=== PATIENT | female | born 1970 | race Caucasian/White ===

== ENCOUNTER 2017-03-06 22:51 | Emergency (ER) | payer SELFPAY ==
[2017-03-06 22:51] VITALS: BMI 38.2
[2017-03-06 23:00] VITALS: BP 130/59; PULSE 84; RESP 18; TEMP 98.8; O2SAT 99
--- NOTE | 2017-03-06 23:26 | ED PDOC ---
HPI: CCC, URI, Sore Throat Time Seen by Provider: 03/06/17 23:01 Chief Complaint (Nursing): ENT Problem Chief Complaint (Provider): Right ear pain 2 day History Per: Patient History/Exam Limitations: no limitations Onset/Duration Of Symptoms: Days Current Symptoms Are (Timing): Still Present Location Of Pain: Ear(s) Associated Symptoms: denies: Fever, Chills, Sore Throat, Cough, Sputum, Neck Pain, Sinus Drainage, Myalgias, Nasal Congestion, Nausea, Vomiting, Diarrhea Past Medical History Reviewed: Historical Data, Nursing Documentation, Vital Signs Vital Signs: Last Vital Signs Temp 98.8 F 03/06/17 22:57 Pulse 84 03/06/17 22:57 Resp 18 03/06/17 22:57 BP 130/59 L 03/06/17 22:57 Pulse Ox 99 03/06/17 23:26 - Medical History PMH: No Chronic Diseases Denies: Chronic Kidney Disease - Surgical History Surgical History: (x 1) - Family History Family History: States: Unknown Family Hx - Living Arrangements Living Arrangements: With Family - Social History Current smoker - smoking cessation education provided: No Alcohol: None Drugs: Denies - Home Medications Home Medications: Ambulatory Orders Medication Instructions Recorded Docusate [Colace] 100 mg PO BID PRN #14 cap 11/28/14 oxyCODONE/Acetaminophen [Percocet 1 tab PO Q6H PRN #20 tab 11/28/14 5/325 mg Tab] Nabumetone [Relafen] 500 mg PO BID #20 tab 01/23/15 oxyCODONE/Acetaminophen [Percocet 1 ea PO Q6H PRN #15 tab 01/23/15 5/325 mg Tab] Methocarbamol [Robaxin] 500 mg PO TID #14 tab 05/03/15 Nabumetone [Relafen] 500 mg PO BID #10 tab 05/03/15 Tramadol Hydrochloride [Tramadol] 50 mg PO BID #7 tab 05/03/15 Metoclopramide Hydrochloride 10 mg PO TID #30 tab 05/10/15 [Reglan] Naproxen [Naprosyn] 500 mg PO BID PRN #30 tab 05/10/15 Amoxicillin/Clavulanate [Augmentin 1 tab PO BID #14 tab 07/20/15 875 MG-125 MG] Ibuprofen [Motrin] 600 mg PO Q6 PRN #15 tab 07/20/15 Ciprofloxacin/Ciprofloxa HCl 500 mg PO BID #14 tab 10/19/15 [Ciprofloxacin] Phenazopyridine HCl [Pyridium] 200 mg PO TID PRN #10 tablet 10/19/15 Ciprofloxacin/Dexamethasone 4 drop .ROUTE BID #1 bottle 03/06/17 [Ciprodex 0.3%-0.1% 7.5 Ml] - Allergies Allergies/Adverse Reactions: Allergies Allergy/AdvReac Type Severity Reaction Status Date / Time No Known Allergies Allergy Verified 05/10/15 16:35 Review of Systems ROS Statement: Except As Marked, All Systems Reviewed And Found Negative Constitutional: Negative for: Fever, Chills ENT: Positive for: Ear Pain Physical Exam - Reviewed Nursing Documentation Reviewed: Yes Vital Signs Reviewed: Yes - Physical Exam Appears: Positive for: Well, Non-toxic, No Acute Distress Head Exam: Positive for: ATRAUMATIC, NORMAL INSPECTION, NORMOCEPHALIC Skin: Positive for: Normal Color, Warm, DRY Eye Exam: Positive for: Normal appearance ENT: Positive for: Other ((+) erythema and edema of the external auditory canal ). Negative for: Normal ENT Inspection Neck: Positive for: Normal, Painless ROM Cardiovascular/Chest: Positive for: Regular Rate, Rhythm Respiratory: Positive for: Normal Breath Sounds. Negative for: Accessory Muscle Use, Respiratory Distress Gastrointestinal/Abdominal: Positive for: Normal Exam, Bowel Sounds, Soft Back: Positive for: Normal Inspection Extremity: Positive for: Normal ROM Neurologic/Psych: Positive for: Alert, Oriented - ECG O2 Sat by Pulse Oximetry: 99 Disposition - Clinical Impression Clinical Impression: Acute otitis externa - Patient ED Disposition Is Patient to be Admitted: No Counseled Patient/Family Regarding: Diagnosis, Need For Followup - Disposition Disposition: Routine/Home Disposition Time: 23:25 Condition: GOOD Prescriptions: Ciprofloxacin/Dexamethasone [Ciprodex 0.3%-0.1% 7.5 Ml] 4 drop .ROUTE BID #1 bottle Instructions: Otitis Externa (ED) Forms: [employer] (Welsh) Print Language: HAITIAN
== END 2017-03-06 23:46 | disposition home or self-care (01) ==
LOC: H.ER 22:51
DX: H60.91 Unspecified otitis externa, right ear (principal)